=== PATIENT | female | born 1970 | race Caucasian/White ===

== ENCOUNTER → 2016-11-06 | Outpatient (CLI) | payer OTHER ==
[~2016-11-06] MED LIST: IOPAMIDOL (ISOVUE 370) 100 ML BTL IV ONE
--- NOTE | 2016-11-06 10:21 | CT ---
CT Angiography of the Head Clinical Indications: Movement disorder. R29.818. Neurological changes strongly suggesting intracereb ral aneurysm. Technique: During automated power injection of 85 mL of Isovue-370, thinly collimated spiral (volume tric) multidetector helical imaging was performed through the head. Independent three-dimensional Libox workstation was used for additional manipulations of images by the radiologist. Dose reduction techniques were utilized. Patient experienced mild contrast reaction consisting of throat tightness. Patient did not require any intervention. She was observed in the Radiology department for 30 minute s and uneventfully released from the department after the observation period. Comparison: MRI of the brain October 14, 2016. Findings: The anterior and posterior circulation is normal. No occlusion or filling defect. No aneur ysm, vascular malformation, or enhancing lesion. The venous system is normally opacified. No sagittal sinus thrombosis. Bilateral posterior communicating arteries are small in caliber. Impression: 1. Normal anterior and posterior circulation. No aneurysm or evidence of embolic disease. 2. Normal venous system. No sagittal sinus thrombosis.
== END ==
LOC: FIMAGING 08:42
PROVIDERS: ATTEND Psychiatry & Neurology Neurology
DX: R29.818 Other symptoms and signs involving the nervous system (principal)
CPT/HCPCS: Q9967

== ENCOUNTER 2017-04-11 14:45 | Observation (INO) | payer OTHER ==
--- NOTE | 2017-04-11 15:01 | CPEKG ---
Heart Rate: 105 RR Interval: 571 P-R Interval: 156 QRSD Interval: 74 QT Interval: 336 QTC Interval: 445 P [place]: 43 QRS [place]: -5 T Wave [place]: 38 EKG Severity - OTHERWISE NORMAL ECG - EKG Impression: SINUS TACHYCARDIA Electronically Signed By: Ina Thomas 11-Apr-2017 18:03:04
--- NOTE | 2017-04-11 15:13 | EDPHY ---
H & P Time Seen by Provider: 04/11/17 14:57 HPI/ROS: HPI Chest discomfort, dyspnea, fast heart rate. 38-year-old female by private vehicle. She just drove from [facility] and arrived here on April 03. She reports that for the last 24-38 hours she has experience chest discomfort in combination with dyspnea with exertion and which she describes as a fast heart rate. She describes this chest discomfort as a pressure and aching like sensation, mid chest with a sensation of numbness in her left arm and up into her left jaw. She does not have any prior history of coronary artery disease. ROS: Constitutional: No fever, no chills. No weakness. Eyes: No discharge. No changes in vision. ENT: No sore throat. No nasal congestion or rhinorrhea. Respiratory: No cough. As above. Cardiac: As above. Gastrointestinal: No abdominal pain, no vomiting, no diarrhea. Genitourinary: No hematuria. No dysuria or increased frequency with urination. Musculoskeletal: No back pain. No neck pain. No myalgias or arthralgias. Skin: No rashes. Neurological: No headache. No focal weakness or altered sensation. Past medical history: History of hypothyroidism. She takes Synthroid for this. Social history: Nonsmoker, , here by herself currently. No alcohol. Physical Exam: General Appearance: Alert, no distress. This patient is responding to questions appropriately and in full sentences. This patient appears well- hydrated and well-nourished. Eyes: Pupils equal and round no pallor or injection. No lid edema, erythema or injection. Respiratory: There are no retractions, lungs are clear to auscultation with good air movement bilaterally. Cardiovascular: Regular rate and rhythm. Tachycardia. No murmur appreciated. Gastrointestinal: Abdomen is soft and nontender, no masses, bowel sounds normal. No focal tenderness at McBurney's point. No Morse sign. Neurological: Motor sensory function is grossly intact. Cranial nerves are normal. Gait is normal. Skin: Warm and dry, no rashes. Musculoskeletal: Neck is supple and nontender. Extremities are symmetrical. All joints range without pain or impingement. Psychiatric: No agitation. No depression. Database: EKG: EKG time is 3:00 p.m.; EKG shows a narrow complex sinus tachycardia with a ventricular rate of 105. The MA, QRS, QT intervals are within normal limits. There are no ST-T wave changes indicative of ischemic or injury pattern. No evidence of right heart strain. Interpreted by me. Imaging: Chest x-ray AP portable; the cardiac mediastinal silhouette is unremarkable. No evidence of infiltrate or pneumothorax. Mild left lower lobe atelectasis. No acute cardiopulmonary disease process noted. Interpreted by me. Procedures: Emergency department course: IV placed, she was given 324 mg chewed aspirin. She was placed on a monitor. She was placed on oxygen at 2 L by nasal cannula. She will be given 500 cc of IV normal saline to see if there is any change in her heart rate. She denies being anxious at this time. 4:00 p.m., patient re-evaluated. Resting comfortably at this time. After 500 cc of IV normal saline, she still remains mildly tachycardic at 100-105. She denies any chest discomfort at this time. Results of her emergency department workup have been discussed with her. She endorses admission for observation and further evaluation by the hospitalist service. 4:05 p.m., spoke with hospitalist. Patient accepted for admission by Dr. Angely Anglin. Patient admitted to telemetry in stable condition. Differential Diagnosis: The differential diagnosis on this patient includes but is not limited to acute coronary syndrome, pulmonary embolism, anxiety reaction, congestive heart failure. This represents a partial list of diagnoses considered. These considerations are based on history, physical exam, past history, reassessment and diagnostic testing. Smoking Status: Never smoked Constitutional: Initial Vital Signs Temperature (C) 37.5 C 04/11/17 14:45 Heart Rate 114 H 04/11/17 14:45 Respiratory Rate 20 04/11/17 14:45 Blood Pressure 146/103 H 04/11/17 14:45 O2 Sat (%) 98 04/11/17 14:45 O2 Delivery Mode Room Air Allergies/Adverse Reactions: pseudoephedrine HCl [From Tavist] Allergy (Mild, Verified 04/11/17 14:50) acetaminophen [From Tavist] Allergy (Verified 04/11/17 14:49) amoxicillin [Amoxicillin] Allergy (Verified 04/11/17 14:49) astemizole [From Hismanal] Allergy (Verified 04/11/17 14:49) banana [Banana] Allergy (Verified 04/11/17 14:49) chloral hydrate Allergy (Verified 04/11/17 14:49) ciprofloxacin [From Cipro] Allergy (Verified 04/11/17 14:49) ciprofloxacin HCl [From Cipro] Allergy (Verified 04/11/17 14:49) clemastine fumarate [From Tavist] Allergy (Verified 04/11/17 14:49) doxepin [Doxepin] Allergy (Verified 04/11/17 14:49) erythromycin base [Erythromycin Base] Allergy (Verified 04/11/17 14:49) fluocinolone acetonide [From Synalar] Allergy (Verified 04/11/17 14:49) fluocinonide [From Lidex] Allergy (Verified 04/11/17 14:49) hydrocortisone [From Cortaid] Allergy (Verified 04/11/17 14:49) hydrocortisone acetate [From Cortaid] Allergy (Verified 04/11/17 14:49) hydroxyzine Allergy (Verified 04/11/17 14:49) lansoprazole [From Prevacid] Allergy (Verified 04/11/17 14:49) lindane [From Kwell] Allergy (Verified 04/11/17 14:49) metronidazole [From Flagyl] Allergy (Verified 04/11/17 14:49) Metronidazole HCl [From Flagyl] Allergy (Verified 04/11/17 14:49) nystatin Allergy (Verified 04/11/17 14:49) Sulfa (Sulfonamide Antibiotics) Allergy (Verified 04/11/17 14:49) terbinafine HCl [From Lamisil] Allergy (Verified 04/11/17 14:49) terfenadine [From Seldane] Allergy (Verified 04/11/17 14:49) tioconazole [From Monistat 1] Allergy (Verified 04/11/17 14:49) triamcinolone Allergy (Verified 04/11/17 14:49) triazolam [From Halcion] Allergy (Verified 04/11/17 14:49) AVOCADO Allergy (Uncoded 01/01/13 09:41) CHLORTIMETON Allergy (Uncoded 01/01/13 09:41) contrast dye Allergy (Uncoded 04/11/17 14:50) CT contrast Allergy (Uncoded 11/06/16 09:43) DICLOYACILLIN Allergy (Uncoded 01/01/13 09:41) LATEX Allergy (Uncoded 01/01/13 09:41) Most antibiotics and anti-histamine Allergy (Uncoded 02/26/10 14:41) MRI contrast Allergy (Uncoded 11/06/16 09:43) SECANOL Allergy (Uncoded 01/01/13 09:41) See list Allergy (Uncoded 02/26/10 14:40) TEMARIL Allergy (Uncoded 01/01/13 09:41) Home Medications: Medication Instructions Recorded Levothyroxine [Synthroid 88 mcg 100 mcg PO DAILY06 04/05/12 (RX)] Medical Decision Making - Diagnostics Imaging Results: Imaging Impressions Chest X-Ray 04/11/17 15:14 Impression: Mild atelectasis, left lower lung. Otherwise negative. - Data Points Laboratory Results: Laboratory Results 04/11/17 15:10 04/11/17 15:10 04/11/17 04/11/17 04/11/17 15:10 15:10 15:10 WBC 8.03 10^3/uL 10^3/uL (3.80-9.50) RBC 4.99 10^6/uL 10^6/uL (4.18-5.33) Hgb 15.0 g/dL g/dL (12.6-16.3) Hct 43.1 % % (38.0-47.0) MCV 86.4 fL fL (81.5-99.8) MCH 30.1 pg pg (27.9-34.1) MCHC 34.8 g/dL g/dL (32.4-36.7) RDW 12.6 % % (11.5-15.2) Plt Count 266 10^3/uL 10^3/uL (150-400) MPV 9.8 fL fL (8.7-11.7) Neut % (Auto) 50.8 % % (39.3-74.2) Lymph % (Auto) 35.2 % % (15.0-45.0) B[place] % (Auto) 10.1 % % (4.5-13.0) Eos % (Auto) 2.6 % % (0.6-7.6) Baso % (Auto) 0.9 % % (0.3-1.7) Nucleat RBC Rel Count 0.0 % % (0.0-0.2) Absolute Neuts (auto) 4.08 10^3/uL 10^3/uL (1.70-6.50) Absolute Lymphs (auto) 2.83 10^3/uL 10^3/uL (1.00-3.00) Absolute Monos (auto) 0.81 10^3/uL H 10^3/uL (0.30-0.80) Absolute Eos (auto) 0.21 10^3/uL 10^3/uL (0.03-0.40) Absolute Basos (auto) 0.07 10^3/uL 10^3/uL (0.02-0.10) Absolute Nucleated RBC 0.00 10^3/uL 10^3/uL (0-0.01) Immature Gran % 0.4 % % (0.0-1.1) Immature Gran # 0.03 10^3/uL 10^3/uL (0.00-0.10) PT 12.6 SEC SEC (12.0-15.0) INR 0.95 (0.83-1.16) APTT 26.1 SEC SEC (23.0-38.0) D-Dimer < 0.27 ug/mLFEU ug/mLFEU (0.00-0.50) Sodium 137 mEq/L mEq/L (134-144) Potassium 3.4 mEq/L L mEq/L (3.5-5.2) Chloride 102 mEq/L mEq/L (97-110) Carbon Dioxide 22 mEq/l mEq/l (22-31) Anion Gap 13 mEq/L mEq/L (8-16) BUN 12 mg/dL mg/dL (7-23) Creatinine 1.1 mg/dL H mg/dL (0.6-1.0) Estimated GFR 53 Glucose 91 mg/dL mg/dL (70-100) Calcium 9.7 mg/dL mg/dL (8.5-10.4) Creatine Kinase 110 IU/L IU/L (0-156) CK-MB (CK-2) Fraction 0.56 ng/mL ng/mL (0-3.19) Troponin I < 0.012 ng/mL ng/mL (0-0.034) NT-Pro-B Natriuret Pep 22 pg/mL pg/mL (0-125) Medications Given: Discontinued Medications Sodium Chloride (Ns) 500 mls @ 1,000 mls/hr IV ONCE ONE PRN Reason: Protocol Stop: 04/11/17 15:43 Last Admin: 04/11/17 15:20 Dose: 500 mls Departure - Departure Disposition: [facility] Acute Clinical Impression: Chest pain, Dyspnea on exertion, Tachycardia Referrals: Shamar Becker [Primary Care Provider] - As per Instructions
[2017-04-11] MEDS ORDERED: NS 500 ML IV ONE (15:14)
[2017-04-11 15:28] LABS: % IMMATURE GRANULYOCYTES 0.4 % (0.0-1.1); ABSOLUTE IMMATURE GRANULOCYTES 0.03 10^3/uL (0.00-0.10); ADD DIFF? NO; ADD MORPH? NO; ADD SCAN? NO; ATYPICAL LYMPHOCYTE FLAG 10 (0-99); FRAGMENT RBC FLAG 0 (0-99); HEMATOCRIT 43.1 % (38.0-47.0); LEFT SHIFT FLG 0 (0-99); LIPEMIA HEMOLYSIS FLAG 90 (0-99); MEAN CELL HEMOGLOBIN 30.1 pg (27.9-34.1); MEAN CELL HEMOGLOBIN CONCENTR. 34.8 g/dL (32.4-36.7); MEAN CELL VOLUME 86.4 fL (81.5-99.8); MEAN PLATELET VOLUME 9.8 fL (8.7-11.7); PLATELET CLUMPS FLAG 0 (0-99); PLATELET COUNT 266 10^3/uL (150-400); RED BLOOD CELL COUNT 4.99 10^6/uL (4.18-5.33); RED CELL DISTRIBUTION WIDTH 12.6 % (11.5-15.2)
[2017-04-11 15:38] LABS: INR 0.95 (0.83-1.16); PROTIME(PATIENT) 12.6 SEC (12.0-15.0)
[2017-04-11 15:39] LABS: APTT 26.1 SEC (23.0-38.0)
[2017-04-11 15:44] LABS: ANION GAP 13 mEq/L (8-16); CALCIUM 9.7 mg/dL (8.5-10.4); CARBON DIOXIDE 22 mEq/l (22-31); CHLORIDE 102 mEq/L (97-110); CREATININE 1.1 mg/dL (0.6-1.0); GLOMERULAR FILTRATION RATE 53; GLUCOSE 91 mg/dL (70-100); POTASSIUM 3.4 mEq/L (3.5-5.2); SODIUM 137 mEq/L (134-144)
[2017-04-11 15:56] LABS: CREATINE KINASE-MB FRACTION 0.56 ng/mL (0-3.19); TROPONIN I < 0.012 ng/mL (0-0.034)
[2017-04-11] MEDS ORDERED: POTASSIUM CL 20 MEQ TAB PO ONE (16:50)
[2017-04-11] MEDS ORDERED: ONDANSETRON 4 MG/2 ML VIAL IVP PRN (16:51)
[2017-04-11] MEDS ORDERED: ONDANSETRON DISINTEGRATING 4 MG TAB PO PRN (16:51)
[2017-04-11] MEDS ORDERED: ASPIRIN 325 MG TAB PO ONE (16:54)
--- NOTE | 2017-04-11 18:04 | GHP ---
[f rep st] HISTORY AND PHYSICAL DATE OF ADMISSION: 04/11/2017 CHIEF COMPLAINT: Heart palpitations, chest discomfort and dyspnea on exertion. HISTORY OF PRESENT ILLNESS: The patient is a 46-year-old female with a history of hypothyroidism with prior thyroid ablation and multiple chronic musculoskeletal symptoms and paresthesias who has had extensive workups by both Neurology and Rheumatology, presents to the emergency department with chest discomfort, heart palpitations and dyspnea. Her tone of voice is quite anxious and she is intermittently tearful throughout our interview. However, she denies any depression or anxiety stating "this is just me." She takes her thyroid medications as prescribed. She is followed by Dr. Becker from a primary care standpoint. She recently drove to [place] for her daughter's [employer] contest, and arrived home a week ago. She states yesterday morning, while doing some gardening and housework, she suddenly developed palpitations which persisted until this morning. These were associated with intermittent chest discomfort and dyspnea on exertion. She describes her chest pain as a pressure sensation and aching in her upper left chest. She denies associated diaphoresis or nausea. She does endorse dyspnea on exertion, though denies any chest pain or shortness of breath during my interview. She states these symptoms are also accompanied by numbness and tingling which radiates around her body from her chest to her arm, and sometimes her leg. She goes on to describe a myriad of symptoms including difficulty moving her left leg and intermittent swelling of various extremities. As above, she has been followed closely by Neurology and rheumatology, as well as her primary care physician, with no firm diagnosis made. She believes she has some type of autoimmune disorder which is yet to be identified. Fibromyalgia diagnosis was also entertained. She recently had an extensive workup by Dr. Meraz from a Neurology standpoint due to concern for multiple sclerosis. I reviewed her brain MRI from September 2016 which was not consistent with MS. In the emergency department she has a negative troponin and negative D-dimer. Her EKG is nonischemic. She is chest pain-free at this time. She is admitted to the hospital for further evaluation and to rule out an acute coronary syndrome. PAST MEDICAL HISTORY: 1. Hypothyroidism. 2. Use of oral contraceptive. MEDICATIONS: Please see [facility] for complete updated outpatient medication list. ALLERGIES: The patient has a very long allergy list including pseudoephedrine, acetaminophen, amoxicillin, astemizole, banana, chloral hydrate, ciprofloxacin, , doxepin, erythromycin, fluocinolone, hydrocortisone, hydroxyzine, lansoprazole, lindane, metronidazole, nystatin, sulfa, terbinafine, tioconazole , triamcinolone, triazolam, avocado, Chlor-Trimeton, contrast dye, dicloxacillin , latex, most antibiotics and antihistamines, MRI contrast, seconal and Temaril. FAMILY HISTORY: Positive for stroke and mitral valve disease in her mother. SOCIAL HISTORY: The patient is and has 3 children. She is currently unemployed stating she had to quit her job due to persistent myalgias and various medical symptoms. She denies alcohol, tobacco or drug use. REVIEW OF SYSTEMS: A 10-point review of systems was performed, and is negative , except as per HPI. OBJECTIVE: VITAL SIGNS: Temperature 37.5, blood pressure 146/103, heart rate 114, respiratory rate 20. She is 98% on room air. GENERAL: The patient is awake, alert, oriented, in no acute distress. She is quite anxious and intermittently tearful. HEENT: Head is atraumatic, normocephalic. Pupils equal, round, react to light. Extraocular muscles are intact. Oropharynx is clear. Mucous membranes are moist. NECK: Supple. There is no JVD. HEART: Slightly tachycardic, but regular without murmur. LUNGS: Clear to auscultation bilaterally. ABDOMEN: Soft, obese, nondistended, nontender. Normoactive bowel sounds. EXTREMITIES: Without cyanosis, clubbing, or edema. Warm, well-perfused. NEUROLOGIC: Grossly nonfocal. She moves all 4 extremities. There is no facial asymmetry. Pronator drift is negative. Strength is equal in bilateral upper and lower extremities. Speech is fluent. LABORATORY DATA: CBC is completely normal. INR is 0.95. D-dimer is negative. Troponin is negative. TSH is 0.868 with a normal free T4 of 1.34, and a normal free T3 of 3.82. NT proBNP is 22. EKG shows sinus tachycardia with a heart rate of 105. No ST-segment or T-wave changes suggestive of acute ischemia. Chest x-ray is personally reviewed and interpreted. This shows some mild atelectasis in the left lower lobe. Otherwise no acute cardiopulmonary process. ASSESSMENT AND PLAN: The patient is a 46-year-old female with a history of hypothyroidism and chronic multiple medical symptoms which have yet to yield a firm diagnosis, presents to the emergency department with intermittent chest discomfort, heart palpitations and dyspnea. 1. Chest pain. My suspicion for acute coronary syndrome is low. She has no significant cardiac risk factors, though her blood pressure is slightly elevated. Her EKG is nonischemic. Her initial troponin is negative. A D- dimer was also negative. Will admit the patient to the PCU for observation, trend her troponins. Repeat an EKG to make sure there are no dynamic changes. Given her overall low risk, she can likely be risk stratified as an outpatient versus an exercise treadmill test in the morning prior to discharge. 2. Dyspnea on exertion. We will check an echo for further evaluation and further cardiac workup as above. 3. Tachycardia. The patient has mild sinus tachycardia. It is currently around 100. Her TSH is within normal range, so this does not appear to be from exogenous thyroid replacement. She actually seems very anxious and I discussed with her the sympathetic and parasympathetic nervous system and ways to potentially and engage the parasympathetics. We will offer p.r.n. Ativan, but the patient wishes to defer medications. She will be monitored on telemetry. Consider Propranolol at discharge (if she isn't allergic, see long allergy list) . 4. Hypothyroidism with a normal TSH, normal free T3 and free T4. We will continue her outpatient medication doses. 5. Anxiety. Although the patient does not wish to acknowledge this, I suspect this is a driving factor in many of her symptoms. She wishes to defer medications for this, though we will have p.r.n. Ativan available if she changes her mind. CODE STATUS: The patient is full code. DISPOSITION: Patient is admitted to observation status. Will likely be a candidate for discharge home in the morning if the above workup is unrevealing. /[id number]/MODL MTDD
--- NOTE | 2017-04-11 18:34 | CPEKG ---
Heart Rate: 94 RR Interval: 638 P-R Interval: 172 QRSD Interval: 80 QT Interval: 360 QTC Interval: 451 P [place]: 32 QRS [place]: -2 T Wave [place]: 3 EKG Severity - ABNORMAL ECG - EKG Impression: SINUS RHYTHM EKG Impression: LEFT VENTRICULAR HYPERTROPHY Electronically Signed By: Enrique Corona 12-Apr-2017 16:55:03
[2017-04-11] MEDS: METOPROLOL TARTRATE 25 MG TAB PO SCH ×2 (18:47→20:36)
[2017-04-12 04:43] LABS: CHOLESTEROL 153 mg/dL (140-200); CHOLESTEROL/HDL RATIO 2.78 RATIO (1.00-4.44); HIGH DENSITY LIPOPROTEIN 55 mg/dL (40-95); LDL/HDL RATIO 1.29 RATIO (1.00-3.22); LOW DENSITY LIPOPROTEIN 71 mg/dL (70-100); NON-HIGH DENSITY LIPOPROTEIN 98 mg/dL (90-129); TRIGLYCERIDE 137 mg/dL (35-135); VERY LOW DENSITY LIPOPROTEINS 27 mg/dL (8-25)
[2017-04-12] MEDS ORDERED: LEVOTHYROXINE 112 MCG TAB PO SCH (09:00)
[2017-04-12] MEDS ORDERED: NORETHINDRONE E ESTRADIOL IRON PO SCH ×2 (09:00)
[2017-04-12] MEDS: METOPROLOL TARTRATE 25 MG TAB PO SCH (09:18)
--- NOTE | 2017-04-12 11:04 | ECHO ---
[id number] + + [id number] : : [place] [id number] : : [phone] + + Adult Echocardiographic Report + -----+ :Name: ELADIO FARR Date: 04/12/2017 08:25 AM : : Hospital Admission Number: [id number] Location : 211: :: 1970 Gender: Female Height: 62 in : :Age: 46 yrs Race: WH Weight: 200 lb : :Reason For Study: Eval LV Fx : : BSA: 1.9 meters2 : :History: Dyspnea on exertion, Palpitations : + -----+ MMode/2D Measurements \T\ Calculations IVSd: 0.79 cm LVIDd: 4.6 cm FS: 48.2 % Ao root diam: 2.5 cm LVPWd: 0.91 cm LVIDs: 2.4 cm EDV(Teich): 97.2 ml ACS: 1.8 cm ESV(Teich): 19.8 ml EF(Teich): 79.6 % Normal Measurement Values: + + :LVIDd (3.5-5.7cm) IVSd (0.6-1.1cm) LVPWd (0.6-1.1cm) Aortic Root (2.0-3.7cm)Left Atrium (1.5-4.0cm): :LV Vol(d) (76-115ml) LV Vol(s) (29-48ml) Ejec Fraction (50-65%)PV Seth (0.6- 1.2m/s) TV Seth (0.4-1.0m/s) : :MV E Seth (0.8-1.0m/s)MV A Seth (0.3-1.0m/s)LVOT Seth (0.7-1.2m/s) Asc Ao Seth ( 0.9-1.8m/s) : + + Doppler Measurements \T\ Calculations MV E max seth: Ao V2 max: LV V1 max: PA V2 max: 78.0 cm/sec 114.0 cm/sec 79.0 cm/sec 119.4 cm/sec MV A max seth: Ao max P.2 mmHgLV V1 max PG: PA max P.7 mmHg 45.9 cm/sec 2.5 mmHg MV E/A: 1.7 Left Ventricle The left ventricle is normal in size and function. There is normal left ventricular wall thickness. The left ventricular ejection fraction is normal. Ejection Fraction = 79%. Normal diastolic function. The left ventricular wall motion is normal. Right Ventricle The right ventricle is normal in size and function. Atria The left atrial size is normal. Right atrial size is normal. Mitral Valve The mitral valve is normal in structure and function. There is no mitral valve stenosis. There is no mitral regurgitation noted. Tricuspid Valve Normal tricuspid valve. No tricuspid regurgitation. Aortic Valve The aortic valve is normal in structure and function. The aortic valve is trileaflet. There is no aortic stenosis. There is no aortic insufficiency. Pulmonic Valve The pulmonic valve is normal in structure and function. There is no pulmonic valvular regurgitation. Great Vessels The aortic root is normal size. Pericardium/Pleural There is no pericardial effusion. Conclusion A complete two-dimensional transthoracic echocardiogram was performed (2D, M-mode, Doppler and color flow Doppler). The left ventricle is normal in size and function. The left ventricular ejection fraction is normal. Ejection Fraction = 79%. The left ventricular wall motion is normal. Normal diastolic function The right ventricle is normal in size and function. The mitral valve is normal in structure and function. No tricuspid regurgitation. The aortic valve is normal in structure and function. The aortic valve is trileaflet. The aortic root is normal size. There is no pericardial effusion. No prior echo Final Reading Physician: Dr Eula Amaya electronically signed on 04/12/2017 11:03 AM Ordering Physician: Angely Anglin Performed By: Cirilo Valdez, BOBCS
--- NOTE | 2017-04-12 11:42 | HOSPPROG ---
Hospitalist Progress Note Assessment/Plan: #Atypical chest pain: no e/o ischemia. Normal TTE, negative BNP #Hypothyroidism: decrease LT4 to 100mcg #Chronic musk/parasthesias: followed by Rheum, neurology #Obesity: counseled on exercise/diet #Disp: DC today. FU PCP Subjective: symptoms improved today. Says chest hurt this morning when pushing on it Objective: Vital Signs Temp Pulse Resp BP Pulse Ox 36.4 C 85 11 L 123/82 H 94 04/12/17 08:00 04/12/17 08:00 04/12/17 08:00 04/12/17 08:00 04/12/17 08:00 04/11/17 04/12/17 04/13/17 05:59 05:59 05:59 Intake Total 600 Balance 600 PT 12.6 SEC (12.0-15.0) 04/11/17 15:10 INR 0.95 (0.83-1.16) 04/11/17 15:10 - Physical Exam Constitutional: no apparent distress, obese Eyes: PERRL Ears, Nose, Mouth, Throat: moist mucous membranes Cardiovascular: regular rate and rhythym, no murmur, rub, or gallop, systolic murmur, edema (trace LE edema) Respiratory: no respiratory distress, no rales or rhonchi Gastrointestinal: normoactive bowel sounds, soft, non-tender abdomen Genitourinary: no bladder fullness Skin: warm Musculoskeletal: full muscle strength Neurologic: AAOx3, CN II-XII Intact Psychiatric: interacting appropriately ICD10 Worksheet Patient Problems: Problems Problem Status Onset Chest pain Acute Dyspnea on exertion Acute Tachycardia Acute
[2017-04-12 12:12] VITALS: BP 125/88; PULSE 76; RESP 20; TEMP 97.7; O2SAT 96
--- NOTE | 2017-04-12 13:15 | GDS ---
[f rep st] DISCHARGE SUMMARY DISCHARGE DIAGNOSES: Heart palpitations, chest discomfort, dyspnea, hypothyroidism, suspected anxiety. HISTORY OF PRESENT ILLNESS: The patient is a 46-year-old female with history of hypothyroidism, with prior ablation, and multiple chronic musculoskeletal symptoms and paresthesias, presenting with chest discomfort, heart palpitations and dyspnea. She has been compliant with her thyroid medication. She alternates between 100 mcg and 112 mcg every other day. She has been evaluated by both Neurology and Rheumatology for these chronic symptoms, with no clear etiology. Yesterday, she was doing some gardening and housework, and suddenly developed palpitations. These are associated with intermittent chest discomfort and dyspnea on exertion, but she denied associated diaphoresis or nausea. Symptoms sometimes have intermittent numbness in her arms or her legs, or even her back. She believes she has some sort of autoimmune disorder, which is yet to be identified. She was seen by Neurology for possible MS, however, MRI September 2016 was negative. ASSESSMENT AND PLAN: 1. Atypical chest pain: does not have personal or family risk factors. Troponins and EKG were negative for ischemia. She had a negative D-dimer. I had a long discussion with her, she can consider an outpatient exercise treadmill test. I suspect that underlying anxiety is playing a large role. Her TSH is on the low normal, which may be too much for her. I recommend that she reduce the dose to 100 mcg daily only. 2. Tachycardia: Again TSH is on the low end of normal. Recommended just to do 100 mcg daily of levothyroxine. Could consider propranolol, but we will try just the dose reduction first. She can follow up with her PCP. 3. Hypothyroidism. Again repeat TSH in 4-5 weeks, with 100 mcg daily. 4. Query underlying anxiety. Patient with pressured speech, and appeared anxious during my interview. She states that she is not anxious or stressed in her daily life, that this is the best she has been in years, but given global symptoms chronically, query if this is playing a role. I recommend that she follows up with her PCP for further evaluation. DISPOSITION: Patient is stable for discharge. FOLLOW UP: 1. TSH. 2. Consider propranolol if tachycardia persists. Time spent on discharge: 50 min that was spent discussing test results, counseling on exercise and FU plan. /[id number]/MODL MTDD
[2017-04-13] MEDS ORDERED: LEVOTHYROXINE 100 MCG TAB PO SCH (09:00)
[2017-04-13] MEDS ORDERED: LEVOTHYROXINE 112 MCG TAB PO SCH (09:00)
== END 2017-04-12 13:24 | disposition home or self-care (01) ==
LOC: F2W 18:00
PROVIDERS: ADMIT Hospitalist; ATTEND Internal Medicine
DX: R07.89 Other chest pain (principal); R06.09 Other forms of dyspnea; R00.2 Palpitations; E03.9 Hypothyroidism, unspecified; F41.9 Anxiety disorder, unspecified; M79.9 Soft tissue disorder, unspecified; E66.9 Obesity, unspecified; Z68.38 Body mass index [BMI] 38.0-38.9, adult; Z82.49 Family history of ischemic heart disease and other diseases of the circulatory system
CPT/HCPCS: 71010; 93005; 93306; 96360; 99285; G0378; 84481-90

== ENCOUNTER → 2018-12-23 | Outpatient (CLI) | payer OTHER | LOC: CIMAGING 11:30 | PROVIDERS: ATTEND Nurse Practitioner Women's Health | DX: Z12.31 Encounter for screening mammogram for malignant neoplasm of breast (principal) ==

== ENCOUNTER → 2019-01-09 | Outpatient (CLI) | payer OTHER | LOC: FIMAGING 09:31 | PROVIDERS: ATTEND Nurse Practitioner Women's Health | DX: N60.01 Solitary cyst of right breast (principal) ==